=== PATIENT | female | born 1975 | race American Indian/Alaskan Native ===

== ENCOUNTER 2017-10-28 10:25 | Emergency (ER) | payer BC ==
[2017-10-28 10:48] VITALS: TEMP 97.6; BMI 54.1
--- NOTE | 2017-10-28 10:56 | ED PDOC ---
Arrival/HPI - General Chief Complaint: Abdominal Pain Time Seen by Provider: 10/28/17 10:52 Historian: Patient, Family - History of Present Illness Narrative History of Present Illness (Text): you were treated in the ED today for having intermittent sharp abdomen pain with nausea/vomiting and otherwise without any bile/blood/headache/dizziness/ difficulty breathing/chest pain/abdomen pain/numbness/tingling/loss of limb function/pain with urination/vaginal bleeding or discharge. refused sexual disease testing or treatment. Time/Duration: 24 hours Symptom Course: Intermittent Quality: Other (sharp) Activities at Onset: Rest Context: Sitting Past Medical History - Provider Review Nursing Documentation Reviewed: Yes - Travel History Have you recently traveled outside [place] w/in the past 3 mons?: No - Infectious Disease Hx of Infectious Diseases: None - Reproductive Menopause: No - Psychiatric Hx Substance Use: No - Anesthesia Hx Anesthesia: No Hx Anesthesia Reactions: No Hx Malignant Hyperthermia: No Family/Social History - Physician Review Nursing Documentation Reviewed: Yes Family/Social History: Unknown Family HX Smoking Status: Never Smoked Hx Alcohol Use: No Hx Substance Use: No Allergies/Home Meds Allergies/Adverse Reactions: Allergies No Known Allergies Allergy (Verified 03/14/13 11:21) Review of Systems - Review of Systems Constitutional: Normal Eyes: Normal ENT: Normal Respiratory: Normal Cardiovascular: Normal Gastrointestinal: Abdominal Pain, Nausea, Vomiting Genitourinary Female: Normal Musculoskeletal: Normal Skin: Normal Neurological: Normal Endocrine: Normal Hemo/Lymphatic: Normal Psychiatric: Normal Physical Exam Vital Signs Reviewed: Yes Vital Signs Temp Pulse Resp BP Pulse Ox 10/28/17 14:00 82 18 135/79 98 10/28/17 12:25 74 18 118/72 98 10/28/17 10:40 97.6 F 76 20 166/107 H 96 Temperature: Afebrile Blood Pressure: Hypertensive Pulse: Regular Respiratory Rate: Normal Appearance: Positive for: Well-Appearing, Non-Toxic, Comfortable Pain Distress: None Mental Status: Positive for: Alert and Oriented X 3 - Systems Exam Head: Present: Atraumatic, Normocephalic Pupils: Present: PERRL Extroacular Muscles: Present: EOMI Conjunctiva: Present: Normal Ears: Present: Normal Mouth: Present: Moist Mucous Membranes Pharnyx: Present: Normal Nose (External): Present: Atraumatic Nose (Internal): Present: Normal Inspection Neck: Present: Normal Range of Motion Respiratory/Chest: Present: Clear to Auscultation Cardiovascular: Present: Regular Rate and Rhythm Abdomen: No: Tenderness, Distention, Normal Bowel Sounds, Peritoneal Signs, Rebound, Guarding, McBurney's Point Tender, Rovsing's Sign Present, Hernias, Feeding Tubes, Ostomy Tubes, Mass/Organomegaly, Scars, Other Back: Present: Normal Inspection Upper Extremity: Present: Normal Inspection Lower Extremity: Present: Normal Inspection Neurological: Present: GCS=15, CN II-XII Intact, Speech Normal, Motor Func Grossly Intact Skin: Present: Warm, Normal Color Psychiatric: Present: Alert, Oriented x 3, Normal Insight, Normal Concentration Medical Decision Making ED Course and Treatment: you were treated in the ED today for having intermittent sharp abdomen pain with nausea/vomiting and otherwise without any new foods/travel/sick contacts/ bile/blood/headache/dizziness/difficulty breathing/chest pain/abdomen pain/ numbness/tingling/loss of limb function/pain with urination/vaginal bleeding or discharge/pelvic pain. refused sexual disease testing or treatment. You were otherwise breathing easily, talking easily, good strength/sensation, walking easily, clear lungs, no specific abdomen tenderness, no fever temp 97.6, stable heart rate 76, stable breathing rate 20, excellent oxygen level 96% room air, elevated blood pressure 166/107 and repeat 135/79 improved which we recommend repeat in 2-3 days primary care office to determine further treatment, you have blood tests no infection count 8, stable blood level hemoglobin 10/platelets 352 , stable chemistry, lipase normal 74, heart blood test negative less than 0.01, urine test no acute sign of infection, urine test negative, radiology ct abdomen/pelvis unremarkable, ECG normal sinus rhythm, toradol, zofran, protonix, intravenous fluids, observation done in the ED with improvement, counselled to monitor symptoms and thus discharged home with family. 1. Recommend tylenol or motrin as directed for pain. 2. recommend zofran as directed for nausea. 3. Recommend follow-up primary care 2-3 days to review symptoms, referral to urology for trace blood in urine to ensure no complications. 4. If any worsening pain, fever, chills, nausea, vomiting, difficulty breathing, numbness, loss of limb function, pain with urination or any medical condition then return to the ED. Reassessment Condition: Re-examined, Improved - Lab Interpretations Lab Results: 10/28/17 11:18 10/28/17 11:18 Lab Results 10/28/17 11:18: Beta HCG, Quant < 2.39 10/28/17 11:18: Sodium 141, Potassium 4.1, Chloride 103, Carbon Dioxide 26, Anion Gap 16, BUN 12, Creatinine 0.8, Est GFR ( Amer) > 60, Est GFR (Non- Af Amer) > 60, Random Glucose 99, Calcium 9.3, Magnesium 1.9, Total Bilirubin 0.2, AST 26, ALT 22, Alkaline Phosphatase 107, Lactate Dehydrogenase 456, Total Creatine Kinase 163, Troponin I < 0.01, Total Protein 8.1, Albumin 4.3, Globulin 3.8, Albumin/Globulin Ratio 1.1, Lipase 74 10/28/17 11:18: PT 12.0, INR 1.04, APTT 31.4 10/28/17 11:18: WBC 8.6, RBC 5.16, Hgb 10.5 L, Hct 33.2 L, MCV 64.3 L, MCH 20.3 L, MCHC 31.6, RDW 17.6 H, Plt Count 352, MPV 9.2, Gran % 65.5, Lymph % (Auto) 24.1, [place] % (Auto) 8.7 H, Eos % (Auto) 1.3 L, Baso % (Auto) 0.4, Gran # 5.61, Lymph # (Auto) 2.1, [place] # (Auto) 0.7 H, Eos # (Auto) 0.1, Baso # (Auto) 0.03 10/28/17 11:00: Urine Color Yellow, Urine Appearance Clear, Urine pH 6.0, Ur Specific [place] 1.020, Urine Protein Negative, Urine Glucose (UA) Negative, Urine Ketones Negative, Urine Blood Trace-lysed H, Urine Nitrate Negative, Urine Bilirubin Negative, Urine Urobilinogen 0.2, Ur Leukocyte Esterase Negative , Urine RBC 0 - 2, Urine WBC 1 - 3, Ur Epithelial Cells 4 - 5, Urine Bacteria Few I have reviewed the lab results: Yes - RAD Interpretation Radiology Orders: 10/28/17 12:16 ABDOMEN & PELVIS [ABD & PELVIS IV CONTRAST ONLY] [CT] Stat - EKG Interpretation Interpreted by ED Physician: Yes (NSR) Comparison: Similar to previous EKG (03/14/13) - Medication Orders Current Medication Orders: Discontinued Medications Sodium Chloride (Sodium Chloride 0.9%) 1,000 mls @ 999 mls/hr IV .Q1H1M STA Stop: 10/28/17 12:38 Last Admin: 10/28/17 12:04 Dose: 999 mls/hr eMAR Start Stop Document 10/28/17 12:04 EWO (Rec: 10/28/17 12:04 EWO [id number]) Intravenous Solution Start Date 10/28/17 Start Time 12:04 End Date 10/28/17 End time 13:04 Total Infusion Time 60 Ketorolac Tromethamine (Toradol) 30 mg IVP STAT STA Stop: 10/28/17 11:39 Last Admin: 10/28/17 12:03 Dose: 30 mg MAR Pain Assessment Document 10/28/17 12:03 EWO (Rec: 10/28/17 12:04 EWO [id number]) Pain Reassessment Is this a pain reassessment? Yes Sleep Is patient sleeping during reassessment? No Presence of Pain Presence of Pain Yes Pain Scale Used Pain Scale Used Numeric Location Pain Location Body Site Abdomen Description Description Constant Intensity of Pain at present 5 Pain Behavior Moaning Guarding IVP Administration Document 10/28/17 12:03 EWO (Rec: 10/28/17 12:04 EWO [id number]) Charges for Administration # of IVP Administrations 1 Ondansetron HCl (Zofran Inj) 4 mg IVP STAT STA Stop: 10/28/17 11:14 Last Admin: 10/28/17 11:32 Dose: 4 mg IVP Administration Document 10/28/17 11:32 EWO (Rec: 10/28/17 11:32 EWO [id number]) Charges for Administration # of IVP Administrations 1 Pantoprazole Sodium (Protonix Inj) 40 mg IVP STAT STA Stop: 10/28/17 11:14 Last Admin: 10/28/17 11:32 Dose: 40 mg IVP Administration Document 10/28/17 11:32 EWO (Rec: 10/28/17 11:32 EWO [id number]) Charges for Administration # of IVP Administrations 1 Disposition/Present on Arrival - Present on Arrival Any Indicators Present on Arrival: No History of DVT/PE: No History of Uncontrolled Diabetes: No Urinary Catheter: No History of Decub. Ulcer: No History Surgical Site Infection Following: None - Disposition Have Diagnosis and Disposition been Completed?: Yes Diagnosis: Pain in the abdomen Disposition: HOME/ ROUTINE Disposition Time: 14:48 Patient Plan: Discharge Condition: IMPROVED Discharge Instructions (ExitCare): Acute Abdomen (Belly Pain) Additional Instructions: you were treated in the ED today for having intermittent sharp abdomen pain with nausea/vomiting and otherwise without any new foods/travel/sick contacts/ bile/blood/headache/dizziness/difficulty breathing/chest pain/abdomen pain/ numbness/tingling/loss of limb function/pain with urination/vaginal bleeding or discharge/pelvic pain. refused sexual disease testing or treatment. You were otherwise breathing easily, talking easily, good strength/sensation, walking easily, clear lungs, no specific abdomen tenderness, no fever temp 97.6, stable heart rate 76, stable breathing rate 20, excellent oxygen level 96% room air, elevated blood pressure 166/107 and repeat 135/79 improved which we recommend repeat in 2-3 days primary care office to determine further treatment, you have blood tests no infection count 8, stable blood level hemoglobin 10/platelets 352 , stable chemistry, lipase normal 74, heart blood test negative less than 0.01, urine test no acute sign of infection, urine test negative, radiology ct abdomen/pelvis unremarkable, ECG normal sinus rhythm, toradol, zofran, protonix, intravenous fluids, observation done in the ED with improvement, counselled to monitor symptoms and thus discharged home with family. 1. Recommend tylenol or motrin as directed for pain. 2. recommend zofran as directed for nausea. 3. Recommend follow-up primary care 2-3 days to review symptoms, referral to urology for trace blood in urine to ensure no complications. 4. If any worsening pain, fever, chills, nausea, vomiting, difficulty breathing, numbness, loss of limb function, pain with urination or any medical condition then return to the ED. Prescriptions: Ondansetron ODT [Zofran ODT] 4 mg PO Q8 PRN 5 Days #20 odt PRN Reason: nausa/vomiting Referrals: Domenic Kaiser MD [Primary Care Provider] - Follow up with primary Forms: [employer] ([employer]), WORK NOTE
[2017-10-28 11:22] LABS: BASO # 0.03 K/mm3 (0.0-2.0); BASO % 0.4 % (0.0-3.0); EOS # 0.1 (0.0-0.7); EOS % 1.3 % (1.5-5.0); GRAN # 5.61 (1.4-6.5); GRAN % 65.5 % (50.0-68.0); HEMOGLOBIN 10.5 g/dL (12.0-16.0); LYMPH # 2.1 (1.2-3.4); LYMPH % 24.1 % (22.0-35.0); MEAN CELL VOLUME 64.3 fl (80.0-105.0); MEAN CORPUSCULAR HEMOGLOBIN 20.3 pg (25.0-35.0); MEAN CORPUSCULAR HGB CONC 31.6 g/dl (31.0-37.0); MEAN PLATELET VOLUME 9.2 fl (7.0-11.0); MONO # 0.7 (0.1-0.6); MONO % 8.7 % (1.0-6.0); RBC 5.16 10^6/uL (3.5-6.1); RED CELL DISTRIBUTION WIDTH 17.6 % (11.5-14.5); WHITE BLOOD COUNT 8.6 10^3/ul (4.5-11.0)
[2017-10-28 11:22] LABS: URINE BILIRUBIN NEGATIVE (NEGATIVE); URINE BLOOD TRACE-LYSED (NEGATIVE); URINE GLUCOSE (UA) NEGATIVE (NEGATIVE); URINE LEUKOCYTE ESTERASE NEGATIVE Leu/uL (NEGATIVE); URINE PROTEIN NEGATIVE mg/dL (<30 mg/dL); URINE UROBILINOGEN 0.2 E.U./dL (<1 E.U./dL)
[2017-10-28 11:33] LABS: INR 1.04 (0.93-1.08); PARTIAL THROMBOPLASTIN TIME 31.4 Seconds (25.1-36.5)
[2017-10-28 11:34] LABS: URINE APPEARANCE CLEAR (CLEAR); URINE COLOR YELLOW (YELLOW)
[2017-10-28 11:36] LABS: ALB/GLOB RATIO 1.1 (1.1-1.8); ALBUMIN 4.3 g/dL (3.0-4.8); ALT/SGPT 22 U/L (7-56); AST/SGOT 26 U/L (14-36); BLOOD UREA NITROGEN 12 mg/dL (7-21); CALCIUM 9.3 mg/dL (8.4-10.5); GFR AFRICAN-AMERICAN > 60; GFR NON-AFRICAN AMERICAN > 60; LIPASE 74 U/L (23-300)
[2017-10-28] MEDS ORDERED: Sodium Chloride 0.9% 1,000 ML IV STA (11:38)
[2017-10-28 11:47] LABS: TROPONIN I < 0.01 ng/mL
[2017-10-28 12:22] LABS: URINE BACTERIA FEW (NEG); URINE RBC 0 - 2 /hpf (0-2)
--- NOTE | 2017-10-28 13:53 | CT ---
PROCEDURE: CT Abdomen and Pelvis with contrast HISTORY: 42yoF with abdomen pain/discomfort. COMPARISON: None. TECHNIQUE: Contrast dose: 150 cc of Omni 350 Radiation dose: Total exam DLP = 1037 mGy-cm. This CT exam was performed using one or more of the following dose reduction techniques: Automated exposure control, adjustment of the mA and/or kV according to patient size, and/or use of iterative reconstruction technique. FINDINGS: LOWER THORAX: A suture line is seen in the stomach. LIVER: Unremarkable. No gross lesion or ductal dilatation. GALLBLADDER AND BILE DUCTS: Unremarkable. PANCREAS: Unremarkable. No gross lesion or ductal dilatation. SPLEEN: Unremarkable. ADRENALS: Unremarkable. No mass. KIDNEYS AND URETERS: Unremarkable. No hydronephrosis. No solid mass. VASCULATURE: Unremarkable. No aortic aneurysm. BOWEL: Unremarkable. No obstruction. No gross mural thickening. APPENDIX: Normal appendix. PERITONEUM: Unremarkable. No free fluid. No free air. LYMPH NODES: Unremarkable. No enlarged lymph nodes. BLADDER: Unremarkable. REPRODUCTIVE: Unremarkable. BONES: No acute fracture. OTHER FINDINGS: None. IMPRESSION: No acute findings
[2017-10-28 14:19] VITALS: RESP 18; O2SAT 98
[2017-10-28 14:39] VITALS: BP 135/79; PULSE 82
--- NOTE | 2017-10-28 18:39 | CARD ---
APPROVED REPORT EKG Measurement Heart [id number] VT [id number] <Conclusion> Normal sinus rhythm Nonspecific T wave abnormality Abnormal ECG
== END 2017-10-28 15:12 | disposition home or self-care (01) ==
LOC: ED 10:25
DX: R10.9 Unspecified abdominal pain (principal)
CPT/HCPCS: 74177; 80053; 81001; 82550; 83615; 83690; 83735; 84484; 84702; 85025; 85610; 85730; 87086; 93005; 96361; 96374; 96375; 99284; C9113; J1885; J2405; J7040; Q9967